=== PATIENT | female | born 1950 | race Caucasian/White ===

== ENCOUNTER → 2024-01-17 17:16 | Outpatient (REF) | payer MEDICARE, OTHER, SELFPAY | LOC: WDC 17:16 | PROVIDERS: ATTENDING PHYSICIAN Internal Medicine | DX: Z12.31 Encounter for screening mammogram for malignant neoplasm of breast (principal) | CPT/HCPCS: 77063; 77067 ==

== ENCOUNTER → 2024-01-24 08:55 | Outpatient (REF) | payer MEDICARE, OTHER, SELFPAY ==
[2024-01-24 09:36] LABS: Urine Albumin Negative (Neg - Trace); Urine Bilirubin Negative (Negative); Urine Character Clear (Clear); Urine Color Yellow; Urine Glucose Negative (Negative); Urine Ketone Negative (Negative); Urine Leukocyte Negative (Negative); Urine Nitrite Negative (Negative); Urine Occult Blood Negative (Negative); Urine Urobilinogen Negative (Neg - 1+); Urine pH 6.5 (5.0-9.0)
[2024-01-24 10:56] LABS: % Basophils 0.4 % (0-2); % Eosinophils 5.6 % (0-6); % Immature Granulocytes 0.2 % (0-0.5); % Lymphocytes 34.8 % (20.5-51.1); % Monocytes 8.2 % (1.7-9.3); % Neutrophils 50.8 % (42.2-75.2); Absolute Eosinophils 0.3 10^3/uL (0-0.7); Absolute Lymphocytes 1.6 10^3/uL (1.2-3.4); Absolute Monocytes 0.4 10^3/uL (0.1-0.6); Absolute Neutrophils 2.4 10^3/uL (1.4-6.5); Hematocrit 36.8 % (37.0-47.0); Mean Corp Hgb Conc. 35.3 g/dL (33.0-37.0); Mean Corpuscular Hgb 32.7 pg (27.0-31.0); Mean Corpuscular Volume 92.7 fL (81.0-99.0); Mean Platelet Volume 8.8 fL (7.4-10.4); Nucleated Red Blood Cells % 0 %; Platelet Count 288 10^3/uL (130-400); Red Blood Cell Count 3.97 10^6/uL (4.20-5.40); Red Cell Dist. Width 12.9 % (11.5-14.5); White Blood Cell Count 4.7 10^3/uL (4.8-10.8)
[2024-01-24 12:06] LABS: ALT (SGPT) 18 U/L (0-35); AST (SGOT) 27 U/L (14-36); Albumin 4.2 g/dl (3.5-5.0); Alkaline Phosphatase 64 U/L (38-126); Blood Urea Nitrogen 20 mg/dl (7-17); Calcium 9.4 mg/dl (8.4-10.2); Carbon Dioxide 26 mmol/L (22-30); Chloride 103 mmol/L (98-107); Glucose 89 mg/dl (70-99); HDL Cholesterol 78 mg/dl; LDL Cholesterol, Calculated 150 mg/dl; Potassium 4.1 mmol/L (3.5-5.1); Sodium 141 mmol/L (135-145); Total Bilirubin 1.9 mg/dl (0.2-1.3); Total Cholesterol 260 mg/dl (50-199); Total Protein 6.5 g/dl (6.3-8.2); Triglyceride 164 mg/dl (10-149); Very Low Density Lipoprotein 32 mg/dl (0-30); eGFR > 60.00
== END ==
LOC: REG 08:55
PROVIDERS: ATTENDING PHYSICIAN Internal Medicine
DX: E78.00 Pure hypercholesterolemia, unspecified (principal); Z13.1 Encounter for screening for diabetes mellitus
CPT/HCPCS: 36415; 80053; 80061; 81003; 85025

== ENCOUNTER → 2024-04-20 11:13 | Outpatient (REF) | payer MEDICARE, OTHER, SELFPAY | LOC: MRI 3T 11:13 | PROVIDERS: ATTENDING PHYSICIAN Physician Assistant Surgical; FAMILY PHYSICIAN Internal Medicine | DX: M25.511 Pain in right shoulder (principal) | CPT/HCPCS: 73221 ==

== ENCOUNTER → 2024-05-03 08:02 | Outpatient (REF) | payer MEDICARE, OTHER, SELFPAY | LOC: RAD 08:02 | PROVIDERS: ATTENDING PHYSICIAN Internal Medicine | DX: G89.29 Other chronic pain (principal); M79.662 Pain in left lower leg; R22.42 Localized swelling, mass and lump, left lower limb | CPT/HCPCS: 93971 ==

== ENCOUNTER → 2024-07-23 11:32 | Outpatient (REF) | payer MEDICARE, OTHER, SELFPAY | LOC: CLAB 11:32 | DX: R39.9 Unspecified symptoms and signs involving the genitourinary system (principal) | CPT/HCPCS: 87086; 87088; 87186 ==

== ENCOUNTER 2024-09-28 18:53 | Emergency (ER) | payer MEDICARE, OTHER, SELFPAY ==
[2024-09-28 18:58] VITALS: BP 200/119
[2024-09-28 19:26] LABS: Hematocrit 36.6 % (37.0-47.0); Hemoglobin 13.2 g/dL (12.0-16.0); Mean Corp Hgb Conc. 36.1 g/dL (33.0-37.0); Mean Corpuscular Volume 91.5 fL (81.0-99.0); Nucleated Red Blood Cells % 0 %; Platelet Count 225 10^3/uL (130-400); Red Cell Dist. Width 13.5 % (11.5-14.5)
[2024-09-28 19:29] VITALS: BMI 26.2
[2024-09-28 19:42] LABS: ALT (SGPT) 17 U/L (0-35); AST (SGOT) 24 U/L (14-36); Albumin 4.4 g/dl (3.5-5.0); Alkaline Phosphatase 74 U/L (38-126); Blood Urea Nitrogen 20 mg/dl (7-17); Calcium 9.5 mg/dl (8.4-10.2); Carbon Dioxide 21 mmol/L (22-30); Chloride 110 mmol/L (98-107); Estimated Creatinine Clearance 73 ml/min; Glucose 95 mg/dl (70-99); Potassium 3.8 mmol/L (3.5-5.1); Sodium 137 mmol/L (135-145); Total Protein 6.6 g/dl (6.3-8.2); eGFR > 60.00
--- NOTE | 2024-09-28 19:42 | ED.GENMED ---
History of Present Illness
General
Chief Complaint: Cardiac Symptoms
Source: patient
Exam Limitations: none
Time Seen by Provider: 09/28/24 19:33
History of Present Illness
History of Present Illness:
See MDM
Past History
Past History
ED Past Medical History: Other (Migraines)
ED Past Surgical History: None
Social History
Tobacco: Non-smoker
Alcohol: Occasional
Phy Exam
Physical Exam
Physical Exam:
See MDM
Course
Orders/Labs/Results
Orders:
Orders
09/28/24 18:54
Electrocardiogram (*1) Urgent
Reason for Study: Chest Pain
EKG- Treatment ONCE
09/28/24 19:13
CBC/With Diff [Complete Blood Count/With Diff] Urgent
09/28/24 19:14
CMP [Comprehensive Metabolic Panel] Urgent
Troponin I Urgent
09/28/24 19:41
0.9% Sodium Chloride 1000 ml [Nss] 1,000 ml IV BOLUS
Abnormal Lab Results
09/28/24 09/28/24
19:13 19:14
RBC 4.00 L 10^6/uL
(4.20-5.40)
Hct 36.6 L %
(37.0-47.0)
MCH 33.0 H pg
(27.0-31.0)
Chloride 110 H mmol/L
(98-107)
Carbon Dioxide 21 L mmol/L
(22-30)
BUN 20 H mg/dl
(7-17)
Total Bilirubin 1.8 H mg/dl
(0.2-1.3)
09/28/24 19:13
09/28/24 19:14
Vital Signs
Initial and Last Documented VS:
Initial Vital Signs
Temp Pulse Resp BP Pulse Ox
97.9 F 101 19 200/119 99
09/28/24 18:58 09/28/24 18:58 09/28/24 18:58 09/28/24 18:58 09/28/24 18:58
Last Documented Vital Signs
Temp Pulse Resp BP Pulse Ox
97.9 F 66 18 165/88 98
09/28/24 18:58 09/28/24 20:45 09/28/24 20:45 09/28/24 20:00 09/28/24 20:45
MDM/Problems Addressed
Differential Diagnosis Includes:
HPI and MDM Narrative:
74-year-old female presenting for evaluation of heart racing and not feeling well. This occurred soon after playing pickle ball. She attributes her symptoms to the humidity and possibly mild dehydration. She took her blood pressure after the
symptoms and realized it was elevated. Patient got concerned and came to the emergency department. She denies a prior history of high blood pressure. Patient denies chest pain or shortness of breath
On evaluated the patient, blood pressure 180s/80s and all symptoms are resolving. Given that her blood pressure still elevated yet she feels better, I discussed that the blood pressure less likely the problem. She is mildly dry. Will give IV
fluids and obtain basic blood work. EKG nonischemic and shows no evidence of arrhythmia.
Although likely not the cause, we discussed that her facial flushing, palpitations and high blood pressure could be related to a pheochromocytoma. Discussed having this conversation with her PCP if symptoms persist. The more likely problem is mild
dehydration. Given that the palpitations are improved, I cannot rule out paroxysmal A-fib. Patient understands this and we discussed outpatient workup if symptoms improve here
Physical exam
General: Well appearing and non-toxic
HEENT: protecting airway. Dry mucous membranes
Neck: appears supple
CV: No evidence of cyanosis. Regular rate and rhythm
Resp: No accessory muscle use
Abd: Non-distended
Extremities: No deformities. No edema
Neuro: alert
Psych: Normal affect
Skin: Intact
Problems Addressed including Acute and Chronic Conditions affecting care:
1. Hypertension
Acuity: acute
Prognosis: stable
Details: Will rule out endorgan damage.
2. Palpitations and fatigue
Acuity: acute
Prognosis: stable
Details: Will reassess after IV fluid
Updates
After IV fluids, the patient is feeling much better. Blood pressure is improving but having this further evaluated outpatient setting. She feels comfortable going home
Differential Diagnosis (but not limited to): A-fib, hypertension, orthostasis
Testing considered: D-dimer
Drug therapy (if applicable): OTC meds, please see d/c instruction regarding Rx drugs
Amount and/or Complexity of Data Reviewed
Clinical info obtained from: Patient
External data reviewed: N/A
Labs I independently reviewed (but not limited to): White blood cell count normal
Radiology: N/A
Pulse Ox: not hypoxic
EKG independently reviewed: Sinus rhythm, normal axis, no STEMI
Tube Blower: Sinus rhythm
Critical Care: N/A
Risk of Complication:
Social Determinants of health: Good social support
Discussed with other providers: N/A
Escalation of Care includes Admit/Obs: After being observed in the Emergency Department, pt stable for discharge.
Occasional wrong word or 'sound a like' substitutions may have occurred due to the inherent limitations of voice recognition software. Read the chart carefully and recognize, using context, where substitutions have occurred.
*Pulse Oximetry
SaO2: 99
Oxygen Mode of Delivery: Room air
Patient hypoxic: no
*Critical Care Note
Total Time (30-74mins, 75-104mins- exclusive of procedures): Not Applicable
ED Attending Note
-
Portions of this chart may have been created with voice recognition software.� Occasional wrong word or��sound alike� substitutions may have occurred due to the inherent limitations of voice recognition software.
Discharge Plan
Departure
Patient Disposition: Home (Routine Discharge)
Date of Disposition: 09/28/24
Time of Disposition: 21:56
Patient with high blood pressure during this ER visit?: Yes
Discharge Problem:
Dehydration, Mild HTN
Prescriptions:
No Action
No Current Medications
0
Referrals:
Parviz Byrd MD [Family Provider, Internal Medicine]
Activity Restrictions/Additional Instructions:
Please return for any worsening symptoms.
You may return at any time if you have further concerns.
Please follow up with your doctor at the first available appointment, preferably this week. Please talk to your doctor about your elevated blood pressure readings.
Thank you for choosing [facility].
Interventions
Interventions:
*Risk Screen - Suicide Last Done: 09/28/24 19:30
*General Assessment Last Done: 09/28/24 18:58
*Neglect/Abuse Screening Last Done: 09/28/24 18:58
*ED- Fall Risk Assessment Last Done: 09/28/24 19:30
*ED COVID-19 Vaccine History Last Done: 09/28/24 19:30
ED- Pulmonary Assessment Last Done: 09/28/24 19:36
ED- Cardiac Assessment Last Done: 09/28/24 19:36
Discharge Date and Time
Print Language: YI
[2024-09-28 19:50] LABS: Troponin I < 0.012 ng/ml
[2024-09-28] MEDS: NSS 1000 IV (19:55)
[2024-09-28 20:00] VITALS: BP 165/88
[2024-09-28 21:27] VITALS: BP 162/89
== END 2024-09-28 22:21 | disposition home or self-care (01) ==
LOC: EMR 18:53
PROVIDERS: EMERGENCY PHYSICIAN Student in an Organized Health Care Education/Training Program; FAMILY PHYSICIAN Internal Medicine
DX: E86.0 Dehydration (principal); R00.0 Tachycardia, unspecified; R23.2 Flushing; I10 Essential (primary) hypertension; G43.909 Migraine, unspecified, not intractable, without status migrainosus
CPT/HCPCS: 99284; 96360; 80053; 84484; 85025; 93005